=== PATIENT | female | born 1965 | race Caucasian/White ===

== ENCOUNTER 2021-10-31 11:55 | Inpatient (IN) | payer MEDICARE, MEDICAID ==
[~2021-10-31] VITALS: Ht 170.2 cm; Wt 80.3 kg
[2021-10-31] VITALS (20 sets, daily range): BP systolic 115–186; BP diastolic 57–137
[~2021-10-31 11:55] MED LIST: ACET-2119 PO; ARGI1POW17 PO; BISA-155 PO; BISA10SU62 RC; FURO40TA4 PO; GENT30OI2 TOP; HEPA100D36 SQ; INSU100C10 SQ; INSU100I31 SQ; LIDOCAINE PATCH TD; LORA-269 PO; MAGN400O6 PO; METF-436 PO; MORP15TA PO; NA P230E PR; OMEP20CA15 PO; OXYC-150 PO; PRED10TA23 PO; SIME80TA16 PO; UNABLE TO OBTAIN; ceFOXitin 2GM-NS 100mL ADDvant 100 ML IV ONE; famotidine 20mg tablet PO ONE; meperidine/PF 25mg/ml syringe IV PRN; morphine 2 MG/ML inj. syringe IV PRN; morphine 4 MG/ML inj SYRINge IV PRN; ondansetron/PF 4mg/2ml inj IV PRN; proCHLORperazine 10 MG/2 ml inj IV PRN; ringers solution, lacted 1,000 ML IV SCH
[2021-10-31] MEDS ORDERED: HYDROmorphone/PF 0.2 MG/ML SYRINGE IV ONE (12:20)
[2021-10-31] MEDS ORDERED: BUPIVAcaine/PF 2.5 mg/ml (0.25%) 30ml vial ONE (12:23)
[2021-10-31] MEDS ORDERED: LIDOcaine 1% 30ml preserv. free vial ONE (12:23)
[2021-10-31] MEDS ORDERED: mag hydrox/Alum hydrox/simeth 30ml oral suspension PO PRN (12:40)
[2021-10-31] MEDS ORDERED: acetaminophen 325mg tablet PO PRN ×2 (12:40→17:40)
[2021-10-31] MEDS ORDERED: ondansetron/PF 4mg/2ml inj IV PRN (12:40)
[2021-10-31] MEDS ORDERED: famotidine 20mg tablet PO ONE (12:40)
[2021-10-31] MEDS ORDERED: magnesium hydroxide 30ml (MOM) UD suspension PO PRN (12:40)
[2021-10-31] MEDS ORDERED: HYDROmorphone/PF 0.2 MG/ML SYRINGE IV PRN (12:40)
[2021-10-31 13:00] LABS: BASOPHILS # (AUTO) 0.1 X10'3 (0-0.2); BASOPHILS % (AUTO) 0.7 % (0-1); EOSINOPHILS % (AUTO) 0.2 % (0-6); LYMPHOCYTES # (AUTO) 2.4 X10'3 (1.1-4.8); LYMPHOCYTES % (AUTO) 20.6 % (21-51); MEAN CORPUSCULAR HGB CONC 31.4 g/dL (33.0-36.5); MEAN CORPUSCULAR VOLUME 79.9 FL (78-98); MEAN PLATELET VOLUME 7.6 FL (7.4-10.4); MONOCYTES # (AUTO) 0.3 X10'3 (0-0.9); MONOCYTES % (AUTO) 2.5 % (2-12); NEUTROPHILS # (AUTO) 8.9 X10'3 (1.8-7.7); PRE OP HEMATOCRIT 38.8 % (35.0-45.0); PRE OP HEMOGLOBIN 12.2 g/dL (12.0-16.0); PRE OP PLATELET COUNT 420 X10'3 (140-440); RED BLOOD COUNT 4.86 X10'6 (4.20-5.60); RED CELL DISTRIBUTION WIDTH 21.5 % (11.5-14.5)
[2021-10-31 13:11] LABS: APTT 39 SECONDS (22-32)
[2021-10-31 13:13] LABS: ALBUMIN 2.6 G/DL (3.4-5.0); ALBUMIN/GLOBULIN RATIO 0.6 (1.1-1.5); ALKALINE PHOSPHATASE 94 IU/L (46-116); BLOOD UREA NITROGEN 25 MG/DL (7-18); BUN/CREATININE RATIO 44.6 (6.6-38.0); CALCIUM 8.9 MG/DL (8.5-10.1); CHLORIDE 101 MMOL/L (99-107); CREATININE 0.56 MG/DL (0.40-0.90); PRE OP ALT 47 U/L (30-65); PRE OP ANION GAP 2 (8-16); PRE OP AST 39 U/L (10-37); PRE OP BILIRUB, TOTAL 0.2 MG/DL (0.0-1.0); PRE OP GLUCOSE 102 MG/DL (70-104); PRE OP SODIUM 135 MMOL/L (135-145); TOTAL CARBON DIOXIDE 32.1 MMOL/L (24-32); TOTAL PROTEIN 7.1 G/DL (6.4-8.2); eGFR > 90 ML/MIN
[2021-10-31] MEDS ORDERED: midazolam 1 mg/ML 2ml injection ONE (13:22)
[2021-10-31] MEDS ORDERED: acetaminophen 1000 MG/100ml vial IV ONE (13:22)
[2021-10-31] MEDS ORDERED: fentaNYL /PF 50mcg/ml 5ml ampule ONE (13:22)
[2021-10-31] MEDS ORDERED: sevoflurane 250ml liquid IH ONE (13:22)
[2021-10-31] MEDS ORDERED: rocuronium 10mg/ml inj IV ONE (13:23)
[2021-10-31] MEDS ORDERED: propofol inj 20 ML IV ONE (13:23)
[2021-10-31] MEDS ORDERED: LIDOcaine 1%/PF 5ML 10 MG/ML VIAL ONE (13:23)
[2021-10-31 13:39] LABS: ANISOCYTOSIS 3+; MICROCYTOSIS 1+; PLATELET ESTIMATE NORMAL; TARGET CELLS 1+
[2021-10-31] MEDS ORDERED: hydrocortisone sod succ/PF 100mg/2ml inj. ONE (13:46)
[2021-10-31] MEDS ORDERED: INDOCYANINE GREEN 25 MG/10 ML VIAL IV ONE (15:19)
[2021-10-31] MEDS ORDERED: morphine 4 MG/ML inj SYRINge ONE (15:28)
[2021-10-31] MEDS ORDERED: naloxone 0.4 mg/ml inj IV PRN (16:15)
--- NOTE | 2021-10-31 16:27 | NUR ---
Received from OR via HOSPITAL BED, accompanied by Anesthesiologist JOE and report given by Anesthesiolgist. PT ARRIVES AWAKE TO STIMULI, MASK 02 AT 99%, VSS. DENIES PAIN. COLOSTOMY BAG INTACT, STOMA PINK AND MOIST, DRESSING TO ABD DRY AND INTACT WITH NO DRAINAGE. PT AFEBRILE. Addendum: 10/31/21 at 1639 by Ajit Peterson RN Amended: Links added.
[2021-10-31] MEDS: meperidine/PF 25mg/ml syringe IV PRN ×2 (16:56→17:49)
[2021-10-31] MEDS: HYDROmorphone inj. 0.5 MG/0.5 ML DISP.SYRIN IV PRN ×2 (17:22→21:32)
[2021-10-31] MEDS ORDERED: non-formulary drug (Insulin Lispro (Humalog) 1 UNITS) SQ SCH (17:40)
[2021-10-31] MEDS ORDERED: oxyCODONE/APAP 10/325mg tablet PO PRN (17:40)
[2021-10-31] MEDS ORDERED: morphine IR (immed. release) 30mg tablet PO PRN (17:40)
[2021-10-31] MEDS ORDERED: MESSAGE TO PHARMACY PO ONE (18:00)
[2021-10-31] MEDS ORDERED: glucagon, human recombinant 1mg kit SUBCUT PRN (18:00)
[2021-10-31] MEDS ORDERED: DEXTROSE 15 GM of carb/4 tabs (each vial/BOTTLE has 4 tablets) PO PRN ×2 (18:00)
[2021-10-31] MEDS ORDERED: insulin Lispro (HumaLOG) vial - multi-dose SQ SCH (18:00)
[2021-10-31] MEDS ORDERED: dextrose 50%-water 50ml dispensing syringe IV PRN ×2 (18:00)
--- NOTE | 2021-10-31 18:07 | NUR ---
Report called to receiving nurse REHANA MELCHOR. Transferred via HOSPITAL BED. PT CLEANED PRIOR TO DELIVERY OF PT TO ROOM 402. Belongings DELIVERED WITH PT TO ROOM 4024A AND LEFT IN ROOM. CALL LIGHT WITHIN REACH WITH INSTRUCTION ON ITS USE, BED IN LOW POSITION. Special Issues communicated to receiving nurse. Addendum: 10/31/21 at 1815 by Ajit Peterson RN Amended: Links added.
--- NOTE | 2021-10-31 18:30 | NUR ---
Pt dropped off from [facility]. Received report from JILL Arango who received report from Recovery. Vitals taken and pt needs met. Will continue to monitor/control pain.
[2021-10-31 18:47] LABS: HEMOGLOBIN A1C 8.3 % (4.5-6.2)
[2021-10-31] MEDS ORDERED: [UNRECOGNIZED DRUG - OTHER] PO SCH (20:00)
[2021-10-31] MEDS: LORazepam 1 MG tablet PO SCH (20:28)
[2021-10-31] MEDS: docusate sod 100mg capsule PO SCH (20:28)
[2021-10-31] MEDS: simethicone 80mg chew tab PO SCH (20:29)
[2021-10-31] MEDS: metFORMIN 500mg tablet PO SCH (20:30)
[2021-10-31] MEDS: normal saline 1000ml 1,000 ML IV SCH ×2 (20:31→23:11)
[2021-10-31] MEDS: insulin glargine (Lantus) pen - multi-dose SQ SCH (21:00)
[2021-11-01] MEDS: HYDROmorphone inj. 0.5 MG/0.5 ML DISP.SYRIN IV PRN ×2 (01:30→05:32)
--- NOTE | 2021-11-01 03:00 | NUR ---
Pt pulled colostomy bag off when rolling in bed. Had to replace entire system. Pt is picking at a wound on the right side of her forehead. She said she got it when she tripped and fell at [facility]. Says she is nervous and picking at this wound to the point of bleeding. Large bandaid placed.
[2021-11-01 05:00] VITALS: BP 135/69
[2021-11-01 05:13] VITALS: BP 151/69
[2021-11-01 06:25] LABS: ALBUMIN 2.4 G/DL (3.4-5.0); ANION GAP 7 (8-16); BLOOD UREA NITROGEN 15 MG/DL (7-18); BUN/CREATININE RATIO 27.8 (6.6-38.0); CALCIUM 8.7 MG/DL (8.5-10.1); CHLORIDE 103 MMOL/L (99-107); CREATININE 0.54 MG/DL (0.40-0.90); GLUCOSE 123 MG/DL (70-104); POTASSIUM 4.2 MMOL/L (3.5-5.1); SODIUM 136 MMOL/L (135-145); TOTAL CARBON DIOXIDE 25.9 MMOL/L (24-32); eGFR > 90 ML/MIN
[2021-11-01 06:29] LABS: BASOPHILS # (AUTO) 0.1 X10'3 (0-0.2); BASOPHILS % (AUTO) 0.7 % (0-1); EOSINOPHILS % (AUTO) 0.3 % (0-6); HEMATOCRIT 37.1 % (35.0-45.0); LYMPHOCYTES # (AUTO) 4.2 X10'3 (1.1-4.8); LYMPHOCYTES % (AUTO) 33.6 % (21-51); MEAN CORPUSCULAR HGB CONC 32.3 g/dL (33.0-36.5); MEAN CORPUSCULAR VOLUME 80.4 FL (78-98); MEAN PLATELET VOLUME 8.3 FL (7.4-10.4); MONOCYTES # (AUTO) 1.3 X10'3 (0-0.9); NEUTROPHILS % (AUTO) 55.4 % (42-75); PLATELET COUNT 378 X10'3 (140-440); RED BLOOD COUNT 4.61 X10'6 (4.20-5.60); RED CELL DISTRIBUTION WIDTH 22.1 % (11.5-14.5); WHITE BLOOD COUNT 12.6 X10'3 (4.5-11.0)
--- NOTE | 2021-11-01 07:13 | NUR ---
Patient in room ORTHO 4024. I have received report from Carlos MELCHOR and had the opportunity to ask questions and assume patient care.
[2021-11-01] MEDS: LIDOcaine 5% patch TP SCH (07:47)
[2021-11-01] MEDS: docusate sod 100mg capsule PO SCH ×2 (07:49→19:38)
[2021-11-01] MEDS: enoxaparin 40mg/0.4ml syringe SUBCUT SCH (07:49)
[2021-11-01] MEDS: simethicone 80mg chew tab PO SCH ×4 (07:50→21:00)
[2021-11-01] MEDS: pantoprazole 40mg Tablet.DR PO SCH (07:51)
[2021-11-01] MEDS: furosemide 40mg tablet PO SCH (07:51)
[2021-11-01] MEDS: metFORMIN 500mg tablet PO SCH ×2 (07:51→19:38)
[2021-11-01] MEDS: predniSONE 20 mg tablet PO SCH (07:52)
[2021-11-01] MEDS: LORazepam 1 MG tablet PO SCH ×2 (07:52→19:37)
[2021-11-01] MEDS: magnesium hydroxide 30ml (MOM) UD suspension PO SCH (07:55)
[2021-11-01] MEDS: gentamicin 0.1% topical ointment 15gm TP SCH (07:57)
[2021-11-01] MEDS ORDERED: insulin glargine (Lantus) pen - multi-dose SQ SCH (08:00)
[2021-11-01] MEDS: normal saline 1000ml 1,000 ML IV SCH ×2 (08:40→14:10)
--- NOTE | 2021-11-01 08:59 | NUR ---
Diabetes consult: Pt admitted w/ sacral wound and underwent laparoscopic colostomy this admit per EMR, WOC pending. Currently on Clear liquid diet pending PO intake. Noted pt w/ hx of DM A1c 8.3. Will provide DM/colostomy ed at later time as pt just POD#1. LBM 6/7 receiving routine bowel care. Limited nutrition interventions at this time, will continue to monitor. Recs: 1. Advance to Low fiber diet as medically indicated 2. Bowel care per MD 3. Scaled wts this admit 4. DM/Colostomy ed by NIKUNJ once more appropriate this admit Addendum: 11/01/21 at [address] Amended: Links added.
[2021-11-01 10:00] VITALS: BP 139/84
[2021-11-01] MEDS ORDERED: HYDROmorphone/PF 0.2 MG/ML SYRINGE IV PRN (10:45)
[2021-11-01] MEDS ORDERED: HYDROmorphone inj. 0.5 MG/0.5 ML DISP.SYRIN IV ONE (10:55)
--- NOTE | 2021-11-01 12:15 | NUR ---
Pt blood sugar before lunch was 216, however the pt had 3 juices prior to accucheck. Pt not treated at this time. Will continue to monitor.
--- NOTE | 2021-11-01 12:24 | NUR ---
Arrived in room after call from floor reporting that pt had leak from her ostomy. Pt in room awake and upset, she agrees to assessment and care. Her stoma is on the left abd, it is edematous brick red and dez stomal skin is w/o breakdown. Noted to have a large divot to the midline near stoma from old surgical incision and large abd. Placed bead of stoma paste to the area and then skin prep and placed a Rosamaria 2 piece [id number] opened to 57mm, the stoma measures 52 mm. Placed drainage bag pointing downward and then an ostomy belt. She tolerated well. Addendum: 11/01/21 at 1225 by Marley Delarosa RN Amended: Links added.
[2021-11-01 14:00] VITALS: BP 147/91
[2021-11-01] MEDS: oxyCODONE/APAP 10/325mg tablet PO PRN ×2 (14:08→22:34)
[2021-11-01 18:00] VITALS: BP 143/92
--- NOTE | 2021-11-01 18:41 | NUR ---
Problems reprioritized. Patient report given, questions answered & plan of care reviewed with Napoleon MELCHOR.
--- NOTE | 2021-11-01 19:11 | NUR ---
I have received report from JILL Byers and had the opportunity to ask questions and assume patient care.
[2021-11-01] MEDS: insulin glargine (Lantus) pen - multi-dose SQ SCH (21:00)
[2021-11-01 22:00] VITALS: BP 132/69
--- NOTE | 2021-11-01 23:09 | NUR ---
1700 med was not given until 1943 so I held the 2100 dose. Med to be given QID
[2021-11-02] MEDS: HYDROmorphone 1 mg/ml syringe IV PRN ×3 (03:53→13:32)
[2021-11-02] MEDS: normal saline 1000ml 1,000 ML IV SCH (04:19)
[2021-11-02 05:00] VITALS: BP 135/74
--- NOTE | 2021-11-02 06:38 | NUR ---
Patient in room ORTHO 4024. I have received report from JILL Grimaldo and had the opportunity to ask questions and assume patient care.
--- NOTE | 2021-11-02 06:41 | NUR ---
Patient in room ORTHO 4024. I have received report from Napoleon MELCHOR and had the opportunity to ask questions and assume patient care.
[2021-11-02] MEDS: simethicone 80mg chew tab PO SCH ×2 (07:18→13:12)
[2021-11-02] MEDS: metFORMIN 500mg tablet PO SCH (07:18)
[2021-11-02] MEDS: pantoprazole 40mg Tablet.DR PO SCH (07:18)
[2021-11-02] MEDS: furosemide 40mg tablet PO SCH (07:18)
[2021-11-02] MEDS: enoxaparin 40mg/0.4ml syringe SUBCUT SCH (07:18)
[2021-11-02] MEDS: predniSONE 20 mg tablet PO SCH (07:18)
[2021-11-02] MEDS: magnesium hydroxide 30ml (MOM) UD suspension PO SCH (07:19)
[2021-11-02] MEDS: oxyCODONE/APAP 10/325mg tablet PO PRN ×2 (07:19→13:09)
[2021-11-02] MEDS: docusate sod 100mg capsule PO SCH (07:19)
[2021-11-02] MEDS: LIDOcaine 5% patch TP SCH (07:28)
[2021-11-02 07:33] LABS: BASOPHILS # (AUTO) 0.1 X10'3 (0-0.2); BASOPHILS % (AUTO) 0.8 % (0-1); EOSINOPHILS # (AUTO) 0.1 X10'3 (0-0.9); EOSINOPHILS % (AUTO) 1.1 % (0-6); HEMOGLOBIN 12.1 g/dl (12.0-16.0); LYMPHOCYTES # (AUTO) 4.3 X10'3 (1.1-4.8); LYMPHOCYTES % (AUTO) 36.1 % (21-51); MEAN CORPUSCULAR HEMOGLOBIN 26.1 PG (27.0-31.0); MEAN CORPUSCULAR HGB CONC 31.9 g/dL (33.0-36.5); MEAN CORPUSCULAR VOLUME 81.6 FL (78-98); MEAN PLATELET VOLUME 8.2 FL (7.4-10.4); MONOCYTES # (AUTO) 1.4 X10'3 (0-0.9); MONOCYTES % (AUTO) 11.6 % (2-12); NEUTROPHILS # (AUTO) 6.1 X10'3 (1.8-7.7); NEUTROPHILS % (AUTO) 50.4 % (42-75); PLATELET COUNT 334 X10'3 (140-440); RED BLOOD COUNT 4.65 X10'6 (4.20-5.60); RED CELL DISTRIBUTION WIDTH 21.6 % (11.5-14.5)
[2021-11-02 07:52] LABS: ALBUMIN 2.4 G/DL (3.4-5.0); ANION GAP 8 (8-16); BLOOD UREA NITROGEN 6 MG/DL (7-18); BUN/CREATININE RATIO 14.3 (6.6-38.0); CALCIUM 8.9 MG/DL (8.5-10.1); CHLORIDE 104 MMOL/L (99-107); CREATININE 0.42 MG/DL (0.40-0.90); GLUCOSE 130 MG/DL (70-104); POTASSIUM 3.6 MMOL/L (3.5-5.1); SODIUM 138 MMOL/L (135-145); TOTAL CARBON DIOXIDE 26.3 MMOL/L (24-32); eGFR > 90 ML/MIN
[2021-11-02] MEDS: LORazepam 1 MG tablet PO SCH (08:20)
[2021-11-02] MEDS: gentamicin 0.1% topical ointment 15gm TP SCH (08:25)
[2021-11-02 10:00] VITALS: BP 138/76
--- NOTE | 2021-11-02 14:07 | NUR ---
Call from unit to request trouble shooting of fit issues w/ ostomy appliance. Arrived in room and pt agrees to assessment and care. Noted ostomy appliance to not be intact and pt w/ stool on her abd and gown. Removed appliance and performed peristomal skin care. Dried well then placed skin prep, bead of stoma paste in the midline abd scar, cut to fit #01205 [place] convex cut to 51mm, placed to abd then placed ostomy belt. Educated her to refrain from laying on her left side to prevent lifting of appliance. She verbalized understanding. Call to [facility] to give report to wound nurse re ostomy fit issues and recommendation of use of convexity with belt to aide in keeping in place. Provided pt with 2 #[id number] to take with her as she will be discharged today. Report to primary nurse as well as to MD. Addendum: 11/02/21 at 1415 by Marley Delarosa RN Amended: Links added.
== END 2021-11-02 14:30 | DRG 982 ==
LOC: PAS IN 11:55 → ORTHO 4S 18:10
PROVIDERS: ADMIT Surgery; ATTEND Surgery
PROC: 8E0W4CZ Robotic Assisted Procedure of Trunk Region, Percutaneous Endoscopic Approach (ICD-10-PCS; 2021-10-31)
PROC: 0DNE4ZZ Release Large Intestine, Percutaneous Endoscopic Approach (ICD-10-PCS; 2021-10-31)
PROC: 0DN84ZZ Release Small Intestine, Percutaneous Endoscopic Approach (ICD-10-PCS; 2021-10-31)
PROC: 0DNU4ZZ Release Omentum, Percutaneous Endoscopic Approach (ICD-10-PCS; 2021-10-31)
PROC: 0D1N4Z4 Bypass Sigmoid Colon to Cutaneous, Percutaneous Endoscopic Approach (ICD-10-PCS; principal; 2021-10-31 13:22)
DX: L89.154 Pressure ulcer of sacral region, stage 4 (principal); G81.90 Hemiplegia, unspecified affecting unspecified side; K66.0 Peritoneal adhesions (postprocedural) (postinfection); E11.9 Type 2 diabetes mellitus without complications; I10 Essential (primary) hypertension; J44.9 Chronic obstructive pulmonary disease, unspecified; G89.4 Chronic pain syndrome; K21.9 Gastro-esophageal reflux disease without esophagitis; Z76.5 Malingerer [conscious simulation]; F41.9 Anxiety disorder, unspecified; M54.9 Dorsalgia, unspecified; Z79.4 Long term (current) use of insulin; Z90.81 Acquired absence of spleen; Z79.84 Long term (current) use of oral hypoglycemic drugs; Z79.899 Other long term (current) drug therapy; Z88.5 Allergy status to narcotic agent; Z98.891 History of uterine scar from previous surgery
CPT/HCPCS: 36415; 80048; 80053; 82948; 83036; 85008; 85025; 85610; 85730; 87081; 93005; A4215; A4421; A4618; A4649; A6196; A6209; A6212; A6213; A6253; A6258; A6449; G0378; J0131; J0694; J1170; J1650; J1720; J1815; J2175; J2250; J2270; J2704; J3010; J3490; J7030; J7120; J7512

== ENCOUNTER 2022-05-25 13:25 | Emergency (ER) | payer MEDICARE, MEDICAID ==
[~2022-05-25] VITALS: Ht 167.6 cm; Wt 73.0 kg
[~2022-05-25 13:25] MED LIST changes: -ceFOXitin 2GM-NS 100mL ADDvant 100 ML IV ONE; -famotidine 20mg tablet PO ONE; -meperidine/PF 25mg/ml syringe IV PRN; -morphine 2 MG/ML inj. syringe IV PRN; -morphine 4 MG/ML inj SYRINge IV PRN; -ondansetron/PF 4mg/2ml inj IV PRN; -proCHLORperazine 10 MG/2 ml inj IV PRN; -ringers solution, lacted 1,000 ML IV SCH
[2022-05-25 14:16] LABS: CLARITY,URINE CLOUDY (Clear); COLOR,URINE YELLOW (Yellow); GLUCOSE, URINE NEGATIVE (Neg); KETONES,URINE NEGATIVE (Neg); LEUKOCYTE ESTERASE ,URINE NEGATIVE (Neg); NITRITES, URINE NEGATIVE (Neg); OCCULT BLOOD,URINE NEGATIVE (Neg); PROTEIN,URINE 30 mg/dl (Neg); UROBILINOGEN,URINE 0.2 E.U/dL (0.2-1.0)
[2022-05-25 14:17] LABS: URINE HCG NEGATIVE (NEG)
[2022-05-25 14:19] LABS: UA COLLECTION TYPE FOLEY CATH
[2022-05-25 14:24] LABS: MUCUS STRANDS MODERATE /LPF (Neg); WBC CLUMPS,URINE FEW /HPF (NEGATIVE)
[2022-05-25 14:25] LABS: YEAST MANY /HPF (NEGATIVE)
[2022-05-25 14:26] LABS: BACTERIA,URINE FEW /HPF (Neg); RBC,URINE 0-2 /HPF (0-2); SQUAMOUS EPITHELIAL CELL,UR FEW /LPF (FEW)
[2022-05-25 14:31] LABS: EOSINOPHILS # (AUTO) 0.2 X10'3 (0-0.9); HEMOGLOBIN 9.7 g/dl (12.0-16.0); MEAN CORPUSCULAR HEMOGLOBIN 22.1 PG (27.0-31.0); MEAN PLATELET VOLUME 7.3 FL (7.4-10.4); NEUTROPHILS # (AUTO) 5.8 X10'3 (1.8-7.7)
[2022-05-25 14:33] LABS: BASOPHILS # (AUTO) 0.3 X10'3 (0-0.2); BASOPHILS % (AUTO) 2.5 % (0-1); EOSINOPHILS % (AUTO) 1.7 % (0-6); HEMATOCRIT 31.5 % (35.0-45.0); LYMPHOCYTES # (AUTO) 4.5 X10'3 (1.1-4.8); LYMPHOCYTES % (AUTO) 39.5 % (21-51); MEAN CORPUSCULAR HGB CONC 30.7 g/dL (33.0-36.5); MEAN CORPUSCULAR VOLUME 72.1 FL (78-98); MONOCYTES # (AUTO) 0.6 X10'3 (0-0.9); MONOCYTES % (AUTO) 4.9 % (2-12); NEUTROPHILS % (AUTO) 51.4 % (42-75); PLATELET COUNT 782 X10'3 (140-440); RED BLOOD COUNT 4.36 X10'6 (4.20-5.60); RED CELL DISTRIBUTION WIDTH 22.6 % (11.5-14.5); WHITE BLOOD COUNT 11.3 X10'3 (4.5-11.0)
[2022-05-25 14:50] LABS: ALANINE AMINOTRANSFERASE 12 U/L (12-78); ALBUMIN 2.2 G/DL (3.4-5.0); ALBUMIN/GLOBULIN RATIO 0.4 (1.1-1.5); ALKALINE PHOSPHATASE 122 IU/L (46-116); ANION GAP 9 (8-16); ASPARTATE AMINO TRANSFERASE 20 U/L (10-37); BILIRUBIN,TOTAL 0.1 MG/DL (0.1-1.0); BLOOD UREA NITROGEN 24 MG/DL (7-18); CALCIUM 9.1 MG/DL (8.5-10.1); CHLORIDE 99 MMOL/L (99-107); GLUCOSE 183 MG/DL (70-104); LIPASE < 50 U/L (73-393); POTASSIUM 3.7 MMOL/L (3.5-5.1); SODIUM 136 MMOL/L (135-145); TOTAL CARBON DIOXIDE 27.8 MMOL/L (24-32); TOTAL PROTEIN 7.6 G/DL (6.4-8.2); eGFR 74 ML/MIN
[2022-05-25 14:57] LABS: ANISOCYTOSIS 3+; HYPOCHROMASIA 1+; MICROCYTOSIS 1+; PLATELET ESTIMATE INCREASED
[2022-05-25 14:58] LABS: TARGET CELLS 1+
[2022-05-25] MEDS ORDERED: morphine 4 MG/ML inj SYRINge IV ONE ×2 (17:25→20:30)
[2022-05-25] MEDS ORDERED: normal saline 1000ml 1,000 ML IV ONE (17:45)
[2022-05-25] MEDS ORDERED: fentaNYL/PF 50MCG/1 ML 2ML syringe IV ONE (18:50)
--- NOTE | 2022-05-25 19:55 | NUR ---
CALLED RAD ABOUT NOT READ CT AT 1954. SAID IT WOULD BE PRIORITIESED
--- NOTE | 2022-05-25 20:00 | NUR ---
I agree with Concepcion Bryant assessment.
[2022-05-25] MEDS ORDERED: methylnaltrexone br 12mg/0.6ml inj***SubQ only SQ ONE (20:25)
--- NOTE | 2022-05-25 20:54 | NUR ---
REPORT GIVEN TO RECIEVING NURSE AT [facility]. TRANSPORT BEING ARRANGED.
--- NOTE | 2022-05-25 21:00 | NUR ---
CALLED [facility] FOR PT TO GO BACK TO [facility] AT 2100 HOURS. WILL CALL BACK WITH [facility]
[2022-05-25 21:25] VITALS: BP 155/88
== END 2022-05-25 21:27 ==
LOC: ER 13:26
DX: K59.00 Constipation, unspecified (principal); R10.9 Unspecified abdominal pain; Z88.5 Allergy status to narcotic agent; Z79.1 Long term (current) use of non-steroidal anti-inflammatories (NSAID); Z79.82 Long term (current) use of aspirin; Z79.84 Long term (current) use of oral hypoglycemic drugs
CPT/HCPCS: 36415; 74176; 80053; 81001; 81025; 83690; 85008; 85025; 87077; 87088; 96361; 96372; 96374; 96375; 96376; 99285; J2212; J2270; J3010; J7030; 96360; 99284